=== PATIENT | female | born 1985 | race Caucasian/White ===

== ENCOUNTER 2019-07-12 09:10 | Outpatient (CLI) | payer OTHER ==
[~2019-07-12] VITALS: Ht 162.6 cm; Wt 94.5 kg
[~2019-07-12 09:10] MED LIST: ACET325T14 PO; PREN1TAB60 PO
[2019-07-12 10:36] LABS: MICROSCOPIC INDICATED
[2019-07-12 10:37] VITALS: BP 124/83
[2019-07-12] MEDS ORDERED: NITR100C56 PO (11:16)
== END 2019-07-12 11:29 | disposition home or self-care (01) ==
LOC: LDOP 09:10
PROVIDERS: ATTEND Obstetrics & Gynecology
DX: O36.8130 Decreased fetal movements, third trimester, not applicable or unspecified (principal); Z3A.35 35 weeks gestation of pregnancy
CPT/HCPCS: 81001; 87081; 87086

== ENCOUNTER 2019-07-23 17:33 | Outpatient (CLI) | payer OTHER ==
[~2019-07-23] VITALS: Ht 162.6 cm; Wt 97.3 kg
[~2019-07-23 17:33] MED LIST changes: +NITR100C56 PO
[2019-07-23 17:47] VITALS: BP 128/80
== END 2019-07-23 19:18 | disposition home or self-care (01) ==
LOC: LDOP 17:33
PROVIDERS: ATTEND Obstetrics & Gynecology
DX: O26.893 Other specified pregnancy related conditions, third trimester (principal); R03.0 Elevated blood-pressure reading, without diagnosis of hypertension; Z3A.36 36 weeks gestation of pregnancy
CPT/HCPCS: 59025; 81003; 99211; G0463

== ENCOUNTER 2019-07-31 08:34 | Inpatient (IN) | payer OTHER ==
[~2019-07-31] VITALS: Ht 162.6 cm; Wt 99.5 kg
[2019-07-31 08:46] VITALS: BP 143/89
[2019-07-31 09:16] LABS: BASOPHILS # (AUTO) 0.03 x10^3/uL (0-0.1); BASOPHILS % (AUTO) 0 % (0-1); EOSINOPHILS # (AUTO) 0.07 x10^3/uL (0-0.4); EOSINOPHILS % (AUTO) 1 % (1-7); LYMPHOCYTES # (AUTO) 2.41 x10^3/uL (1-3.4); LYMPHOCYTES % (AUTO) 27 % (22-44); MD NO; MEAN CORPUSCULAR HEMOGLOBIN 31.7 pg (27.0-34.8); MEAN CORPUSCULAR HGB CONC 34.2 g/dL (32.4-35.8); MEAN CORPUSCULAR VOLUME 92.6 fL (80-100); MEAN PLATELET VOLUME 9.7 fL (7.4-10.4); MONOCYTES # (AUTO) 0.51 x10^3/uL (0.2-0.8); MONOCYTES % (AUTO) 6 % (2-9); NEUTROPHILS # (AUTO) 5.97 x10^3/uL (1.8-6.8); NEUTROPHILS % (AUTO) 66 % (42-75); PLATELET COUNT 174 x10^3/uL (130-400); RED BLOOD COUNT 4.18 x10^6/uL (3.82-5.3); RED CELL DISTRIBUTION WIDTH 12.9 % (9.6-15.2)
[2019-07-31 09:25] LABS: ALBUMIN 2.6 g/dL (3.4-5.0); ANION GAP 9 mmol/L (5-15); CALCIUM 8.1 mg/dL (8.5-10.1); CHLORIDE 109 mmol/L (98-107)
[2019-07-31 09:29] LABS: ALANINE AMINOTRANSFERASE 12 U/L (12-78); ALKALINE PHOSPHATASE 134 U/L (45-117); BILIRUBIN,TOTAL 0.3 mg/dL (0.2-1.0); CREATININE 0.64 mg/dL (0.55-1.02); TOTAL PROTEIN 6.6 g/dL (6.4-8.2)
[2019-07-31 09:37] LABS: MICROSCOPIC INDICATED
[2019-07-31] MEDS ORDERED: D5%-LACTATED RINGERS 1,000 ML IV SCH (10:13)
[2019-07-31] MEDS ORDERED: OXYTOCIN 30U/ 0.9% NaCL 500ML 500 ML IV ONE (10:13)
[2019-07-31] MEDS ORDERED: PENICILLIN GK 5,000,000 UNITS in DEXTROSE 5% 100 ML IVPB ONE (10:30)
[2019-07-31] MEDS ORDERED: SODIUM CITRATE/CITRIC ACID 30 ML UDC PO PRN (10:30)
[2019-07-31] MEDS ORDERED: SODIUM CHLORIDE FLUSH 10ML SYR IVF PRN (10:30)
[2019-07-31] MEDS ORDERED: FENTANYL PF 100 MCG/2ML IV PRN (10:30)
[2019-07-31] MEDS ORDERED: MISOPROSTOL 25 MCG TABLET VG PRN (10:30)
[2019-07-31] MEDS ORDERED: FENTANYL PF 100 MCG/2ML IVPush PRN (10:30)
[2019-07-31] MEDS ORDERED: TERBUTALINE 1 MG/ML, 1ML SQ PRN (10:30)
[2019-07-31] MEDS ORDERED: TERBUTALINE 1 MG/ML, 1ML IVPush PRN (10:30)
[2019-07-31] MEDS ORDERED: ONDANSETRON 2MG/ML, 2ML IVPush PRN ×2 (10:30→20:00)
[2019-07-31] MEDS ORDERED: METOCLOPRAMIDE 5 MG/ML, 2ML IVPush PRN (10:30)
[2019-07-31] MEDS ORDERED: NEWBORN KIT ONE (10:36)
[2019-07-31] MEDS ORDERED: MISOPROSTOL 25 MCG TABLET ONE (10:36)
[2019-07-31] MEDS ORDERED: LIDOCAINE 1%, 20ML ONE (10:36)
[2019-07-31] MEDS ORDERED: MISOPROSTOL 200 MCG TABLET ONE (10:37)
[2019-07-31] MEDS ORDERED: OXYTOCIN 30U/ 0.9% NaCL 500ML 500 ML ONE (10:37)
[2019-07-31] MEDS: LACTATED RINGERS 1,000 ML IV SCH ×2 (10:52→18:45)
[2019-07-31] MEDS ORDERED: FENTANYL PF 500 MCG, BUPIVACAINE/PF 0.5%, 30ML 62.5 ML in SODIUM CHLORIDE 0.9% 177.5 ML EPIDCONT SCH (11:30)
[2019-07-31] MEDS ORDERED: FENTANYL/BUPIV./NS/PF 250 ML EPIDCONT ONE (11:30)
[2019-07-31] MEDS ORDERED: OXYTOCIN 30U/ 0.9% NaCL 500ML 500 ML IV PRN (14:39)
[2019-07-31] MEDS: PENICILLIN GK 2,500,000 UNITS in DEXTROSE 5% 100 ML IVPB SCH ×3 (14:52→22:17)
[2019-07-31] MEDS ORDERED: BUPIVACAINE 0.25% ONE (19:41)
[2019-07-31] MEDS ORDERED: LACTATED RINGERS 1,000 ML IV SCH (19:59)
[2019-07-31] MEDS ORDERED: FENTANYL/BUPIV./NS/PF 250 ML EPIDCONT SCH (19:59)
[2019-07-31] MEDS ORDERED: NALOXONE 0.4 MG/ML, 1ML IVPush PRN (20:00)
[2019-07-31] MEDS ORDERED: LACTATED RINGERS 1,000 ML IVBOLUS PRN (20:00)
[2019-07-31] MEDS ORDERED: EPHEDRINE 50 MG/ML, 1ML IVPush PRN (20:00)
[2019-07-31] MEDS ORDERED: DIPHENHYDRAMINE 50 MG/ML, 1ML IVPush PRN (20:00)
[2019-07-31] MEDS ORDERED: MAGNESIUM SULF. PMX 20GM/500ML 500 ML IV ONE (20:40)
[2019-07-31] MEDS: MAGNESIUM SULF. PMX 20GM/500ML 500 ML IV SCH (20:45)
[2019-07-31] MEDS ORDERED: MAGNESIUM SULFATE PMX 4GM/100M 100 ML IVPB ONE (21:00)
[2019-07-31] MEDS ORDERED: CALCIUM GLUCONATE 4.6 MEQ/10 ML IV PRN (21:00)
[2019-08-01 01:49] VITALS: BP 136/80
[2019-08-01] MEDS ORDERED: ONDANSETRON 2MG/ML, 2ML IV PRN (03:00)
[2019-08-01] MEDS ORDERED: DOCUSATE 100 MG CAPSULE PO PRN (03:00)
[2019-08-01] MEDS ORDERED: MISOPROSTOL 200 MCG TABLET PR PRN (03:00)
[2019-08-01] MEDS ORDERED: SIMETHICONE 80 MG CHEW TAB PO PRN (03:00)
[2019-08-01] MEDS ORDERED: OXYcodone/APAP 5/325MG TABLET PO PRN (03:00)
[2019-08-01] MEDS ORDERED: OXYcodone IR 5MG TABLET PO PRN (03:00)
[2019-08-01] MEDS ORDERED: OXYTOCIN 30U/ 0.9% NaCL 500ML 500 ML ONE (03:03)
[2019-08-01] MEDS: OXYTOCIN 30U/ 0.9% NaCL 500ML 500 ML IV SCH ×3 (03:27→22:49)
[2019-08-01 04:17] VITALS: BP 140/86
[2019-08-01] MEDS ORDERED: MAGNESIUM SULF. PMX 20GM/500ML 500 ML IV ONE (05:05)
[2019-08-01] MEDS: MAGNESIUM SULF. PMX 20GM/500ML 500 ML IV SCH ×2 (05:24→15:20)
[2019-08-01] MEDS ORDERED: ACETAMINOPHEN 325 MG TABLET ONE ×3 (06:28→14:34)
[2019-08-01] MEDS: ACETAMINOPHEN 325 MG TABLET PO PRN ×3 (06:29→15:21)
[2019-08-01] MEDS ORDERED: PRENATAL VIT/IRON/FA 1 EACH TABLET ONE (10:00)
[2019-08-01] MEDS: PRENATAL VIT/IRON/FA 1 EACH TABLET PO SCH (10:02)
[2019-08-01 10:46] LABS: MEAN CORPUSCULAR HEMOGLOBIN 31.7 pg (27.0-34.8); MEAN CORPUSCULAR HGB CONC 33.9 g/dL (32.4-35.8); MEAN CORPUSCULAR VOLUME 93.7 fL (80-100); MEAN PLATELET VOLUME 9.6 fL (7.4-10.4); PLATELET COUNT 194 x10^3/uL (130-400); RED BLOOD COUNT 4.04 x10^6/uL (3.82-5.3); RED CELL DISTRIBUTION WIDTH 13.4 % (9.6-15.2)
[2019-08-01] MEDS ORDERED: LACTATED RINGERS 1,000 ML IV SCH (11:30)
[2019-08-01 11:34] LABS: BASOPHILS # (AUTO) 0.08 x10^3/uL (0-0.1); BASOPHILS % (AUTO) 1 % (0-1); EOSINOPHILS # (AUTO) 0.02 x10^3/uL (0-0.4); EOSINOPHILS % (AUTO) 0 % (1-7); LYMPHOCYTES # (AUTO) 2.31 x10^3/uL (1-3.4); LYMPHOCYTES % (AUTO) 15 % (22-44); MD SCAN; MONOCYTES # (AUTO) 0.95 x10^3/uL (0.2-0.8); MONOCYTES % (AUTO) 6 % (2-9); NEUTROPHILS # (AUTO) 12.34 x10^3/uL (1.8-6.8); NEUTROPHILS % (AUTO) 79 % (42-75)
[2019-08-01] MEDS ORDERED: IBUPROFEN 600 MG TABLET ONE (17:25)
[2019-08-01] MEDS: IBUPROFEN 600 MG TABLET PO PRN (17:29)
[2019-08-01 19:29] VITALS: BP 157/104
[2019-08-01] MEDS ORDERED: LABETALOL 200 MG TABLET ONE (20:21)
[2019-08-01] MEDS: LABETALOL 200 MG TABLET PO SCH (20:24)
[2019-08-02] VITALS (7 sets, daily range): BP systolic 125–152; BP diastolic 77–104
[2019-08-02] MEDS ORDERED: ACETAMINOPHEN 325 MG TABLET ONE (00:44)
[2019-08-02] MEDS: ACETAMINOPHEN 325 MG TABLET PO PRN (00:48)
[2019-08-02] MEDS: LABETALOL 200 MG TABLET PO SCH (08:07)
[2019-08-02] MEDS: IBUPROFEN 600 MG TABLET PO PRN ×2 (08:07→16:14)
[2019-08-02] MEDS: PRENATAL VIT/IRON/FA 1 EACH TABLET PO SCH (08:07)
[2019-08-02] MEDS ORDERED: LABE200T6 PO (10:56)
[2019-08-02] MEDS ORDERED: LABE300T2 PO (17:20)
[2019-08-02] MEDS ORDERED: LABETALOL 200 MG TABLET ONE (18:23)
[2019-08-02] MEDS ORDERED: LABETALOL 300 MG TABLET PO SCH (18:30)
== END 2019-08-02 19:45 | disposition home or self-care (01) | DRG 807 ==
LOC: LDOP 08:34 → LDIP 10:10 → 2NE 08-01 04:58 → 2NW 08-02 03:37
PROVIDERS: ADMIT Obstetrics & Gynecology; ATTEND Obstetrics & Gynecology
PROC: 10E0XZZ Delivery of Products of Conception, External Approach (ICD-10-PCS; principal; 2019-08-01)
PROC: 0UQMXZZ Repair Vulva, External Approach (ICD-10-PCS; 2019-08-01)
PROC: 3E0R3BZ Introduction of Anesthetic Agent into Spinal Canal, Percutaneous Approach (ICD-10-PCS; 2019-08-01)
PROC: 00HU33Z Insertion of Infusion Device into Spinal Canal, Percutaneous Approach (ICD-10-PCS; 2019-08-01)
PROC: 10907ZC Drainage of Amniotic Fluid, Therapeutic from Products of Conception, Via Natural or Artificial Opening (ICD-10-PCS; 2019-08-01)
PROC: 3E0234Z Introduction of Serum, Toxoid and Vaccine into Muscle, Percutaneous Approach (ICD-10-PCS; 2019-08-01)
DX: O14.94 Unspecified pre-eclampsia, complicating childbirth (principal); Z37.0 Single live birth; F41.9 Anxiety disorder, unspecified; O69.81X0 Labor and delivery complicated by cord around neck, without compression, not applicable or unspecified; O99.344 Other mental disorders complicating childbirth; O99.824 Streptococcus B carrier state complicating childbirth; Z3A.37 37 weeks gestation of pregnancy; O71.82 Other specified trauma to perineum and vulva; O13.4 Gestational [pregnancy-induced] hypertension without significant proteinuria, complicating childbirth
CPT/HCPCS: 36415; 80053; 81001; 82570; 83735; 84156; 84550; 85025; 85461; 86592; 86850; 86900; G0378; J2540; J2790; J2590; J3010; J3475; J7120

== ENCOUNTER 2020-07-20 13:43 | Emergency (ER) | payer OTHER, MEDICAID ==
[~2020-07-20] VITALS: Ht 162.6 cm; Wt 82.6 kg
[~2020-07-20 13:43] MED LIST changes: +LABE200T6 PO; +LABE300T2 PO
[2020-07-20 13:46] VITALS: BP 136/91
--- NOTE | 2020-07-20 14:17 | NUR ---
ASSUMED CARE OF PATIENT WHILE PRIMARY RN IS ON BREAK. PT REPORTS COUGH, SORE THROAT AND HEADACHE. PT WAS SEEN AT THIS MORNING AND HAD A COVID TEST. VS STABLE. PT HAS BEEN SEEN BY AMAN BARILLAS. 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 CALL LIGHT IN PLACE. WILL CONTINUE TO MONITOR.
[2020-07-20 14:22] LABS: BASOPHILS % (AUTO) 1 % (0-1); EOSINOPHILS % (AUTO) 1 % (1-7); LYMPHOCYTES % (AUTO) 22 % (22-44); MEAN CORPUSCULAR HEMOGLOBIN 30.1 pg (27.0-34.8); MEAN CORPUSCULAR HGB CONC 33.7 g/dL (32.4-35.8); MEAN PLATELET VOLUME 8.4 fL (7.4-10.4); MONOCYTES % (AUTO) 6 % (2-9); NEUTROPHILS % (AUTO) 71 % (42-75); PLATELET COUNT 265 x10^3/uL (130-400); RED CELL DISTRIBUTION WIDTH 13.1 % (9.6-15.2)
--- NOTE | 2020-07-20 14:22 | NUR ---
REPORT GIVEN TO MARIETTA JOHNSON
[2020-07-20 14:23] LABS: MD NO
[2020-07-20] MEDS ORDERED: ASPIRIN 81 MG TABLET CHEW PO ONE (14:30)
[2020-07-20] MEDS ORDERED: ASPIRIN 81 MG TABLET CHEW ONE (14:33)
[2020-07-20 14:36] LABS: ALBUMIN 3.8 g/dL (3.4-5.0); ANION GAP 5 mmol/L (5-15); CHLORIDE 106 mmol/L (98-107); CREATININE 0.82 mg/dL (0.55-1.02)
[2020-07-20 14:45] LABS: FREE T4 (FREE THYROXINE) 0.89 ng/dL (0.76-1.46); TROPONIN I < 0.015 ng/mL (0.000-0.045)
--- NOTE | 2020-07-20 14:56 | NUR ---
Patient/Caregiver given discharge instructions and they have confirmed that they understand the instructions. Patient ambulatory with steady gait.
== END 2020-07-20 15:10 | disposition home or self-care (01) ==
LOC: ED 14:20
DX: J06.9 Acute upper respiratory infection, unspecified (principal); J02.9 Acute pharyngitis, unspecified; R42 Dizziness and giddiness; R05 Cough; R07.89 Other chest pain; R00.2 Palpitations
CPT/HCPCS: 36415; 71045; 80048; 82040; 83880; 84439; 84443; 84484; 85025; 93005; 99285

== ENCOUNTER 2020-07-26 18:20 | Emergency (ER) | payer OTHER, MEDICAID ==
[~2020-07-26] VITALS: Ht 162.6 cm; Wt 82.7 kg
[2020-07-26 18:55] LABS: BASOPHILS % (AUTO) 0 % (0-1); EOSINOPHILS % (AUTO) 1 % (1-7); LYMPHOCYTES % (AUTO) 17 % (22-44); MEAN CORPUSCULAR HGB CONC 33.6 g/dL (32.4-35.8); MEAN PLATELET VOLUME 8.3 fL (7.4-10.4); MONOCYTES % (AUTO) 5 % (2-9); NEUTROPHILS % (AUTO) 77 % (42-75); PLATELET COUNT 238 x10^3/uL (130-400); RED BLOOD COUNT 4.79 x10^6/uL (3.82-5.3); RED CELL DISTRIBUTION WIDTH 13.4 % (9.6-15.2)
[2020-07-26 19:02] LABS: HCG UR SG 1.024 (1.003-1.030)
[2020-07-26 19:04] LABS: CALCIUM 8.8 mg/dL (8.5-10.1); CHLORIDE 107 mmol/L (98-107)
[2020-07-26 19:09] LABS: ANION GAP 4 mmol/L (5-15)
[2020-07-26 19:09] LABS: MICROSCOPIC INDICATED
[2020-07-26 19:17] LABS: MD SCAN
--- NOTE | 2020-07-26 19:50 | NUR ---
ASSUMED CARE OF PATIENT. PATIENT REPORTS DIZZINESS/HEADACHES. VS STABLE. 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 NSR NOTED. CALL LIGHT IN PLACE. WILL CONTINUE TO MONITOR.
[2020-07-26] MEDS ORDERED: SODIUM CHLORIDE 0.9% 1,000ML IVBOLUS ONE ×2 (21:00→21:30)
--- NOTE | 2020-07-26 21:00 | NUR ---
PT WENT TO CT.
[2020-07-26] MEDS ORDERED: OMNIPAQUE 350 MG/ML, 100ML BOTTLE ONE (21:06)
--- NOTE | 2020-07-26 21:28 | NUR ---
PT BACK FROM CT. PT RESTING IN ROOM. NO ACUTE DISTRESS NOTED. CALL LIGHT IN PLACE. WILL CONTINUE TO MONITOR.
[2020-07-26] MEDS ORDERED: METRONIDAZOLE PMX 500MG/100ML 100 ML IV ONE (21:30)
[2020-07-26] MEDS ORDERED: LEVOFLOXACIN/PMX 750MG/150ML 150 ML IV ONE (21:30)
[2020-07-26] MEDS ORDERED: METRONIDAZOLE PMX 500MG/100ML 100 ML ONE (21:39)
--- NOTE | 2020-07-26 21:48 | NUR ---
NO BLOOD CULTURES PER AMAN HULL
--- NOTE | 2020-07-26 22:02 | NUR ---
BEDSIDE REPORT GIVEN TO MARIETTA ANGULO
[2020-07-26] MEDS ORDERED: LEVOFLOXACIN/PMX 750MG/150ML 150 ML ONE (23:14)
--- NOTE | 2020-07-26 23:51 | NUR ---
PT AMBULATORY TO BATHROOM WITH A STEADY GAIT. SECOND LITER OF NS AND ABX STARTED. VSS.
[2020-07-27 01:09] VITALS: BP 125/83
--- NOTE | 2020-07-27 01:09 | NUR ---
PT TOLERATED MEDICATIONS WELL. TBDC
== END 2020-07-27 01:21 | disposition home or self-care (01) ==
LOC: ED 21:24
DX: K57.32 Diverticulitis of large intestine without perforation or abscess without bleeding (principal); R10.31 Right lower quadrant pain; R10.32 Left lower quadrant pain; R00.2 Palpitations; R10.2 Pelvic and perineal pain; R42 Dizziness and giddiness; R94.31 Abnormal electrocardiogram [ECG] [EKG]
CPT/HCPCS: 36415; 74177; 80048; 81001; 81025; 85025; 87086; 93005; 96365; 96366; 96368; 99285; J1956; J7030; Q9967; 96375